=== PATIENT | female | born 1955 | race Caucasian/White ===

== ENCOUNTER → 2017-08-16 | Outpatient (CLI) | payer BC | END | disposition home or self-care (01) | LOC: CFH 10:21 | PROVIDERS: ATTEND Nurse Practitioner Primary Care | DX: Z13.820 Encounter for screening for osteoporosis (principal); M85.88 Other specified disorders of bone density and structure, other site; N95.9 Unspecified menopausal and perimenopausal disorder; I10 Essential (primary) hypertension; E78.2 Mixed hyperlipidemia; K21.9 Gastro-esophageal reflux disease without esophagitis | CPT/HCPCS: 77080 ==

== ENCOUNTER → 2017-09-07 | Outpatient (CLI) | payer BC | END | disposition home or self-care (01) | LOC: CFH 10:20 | PROVIDERS: ATTEND Internal Medicine | DX: Z12.31 Encounter for screening mammogram for malignant neoplasm of breast (principal) | CPT/HCPCS: G0202 ==

== ENCOUNTER → 2017-09-21 | Outpatient (CLI) | payer BC | END | disposition home or self-care (01) | LOC: LAB 10:18 | PROVIDERS: ATTEND Internal Medicine | DX: Z02.9 Encounter for administrative examinations, unspecified (principal) ==

== ENCOUNTER 2017-12-05 10:00 | Emergency (ER) | payer BC ==
[~2017-12-05] VITALS: Ht 170.2 cm; Wt 81.7 kg
[2017-12-05 10:01] VITALS: BP 150/82
[2017-12-05] MEDS ORDERED: KETOROLAC 30 MG/1 ML IM ONE (12:00)
[2017-12-05] MEDS ORDERED: KETOROLAC 30 MG/1 ML ONE (12:03)
== END 2017-12-05 12:23 | disposition home or self-care (01) ==
LOC: ED 12:17
DX: M10.9 Gout, unspecified (principal)
CPT/HCPCS: 73660; 96372; 99284; J1885

== ENCOUNTER → 2018-04-28 | Outpatient (CLI) | payer BC ==
[~2018-04-28] MED LIST: REGADENOSON 0.4 MG/5 ML SYRINGE ONE
== END | disposition home or self-care (01) ==
LOC: CFH 07:47
PROVIDERS: ATTEND Nurse Practitioner Primary Care
DX: I21.19 ST elevation (STEMI) myocardial infarction involving other coronary artery of inferior wall (principal); I25.9 Chronic ischemic heart disease, unspecified; I10 Essential (primary) hypertension; D23.30 Other benign neoplasm of skin of unspecified part of face; R53.83 Other fatigue; K58.0 Irritable bowel syndrome with diarrhea; R00.2 Palpitations; M85.9 Disorder of bone density and structure, unspecified; E55.9 Vitamin D deficiency, unspecified; F06.31 Mood disorder due to known physiological condition with depressive features; K21.9 Gastro-esophageal reflux disease without esophagitis; J45.909 Unspecified asthma, uncomplicated
CPT/HCPCS: 78452; 93017; A9502; J2785

== ENCOUNTER 2018-07-24 09:53 | Day surgery (SDC) | payer BC ==
[~2018-07-24] VITALS: Ht 167.6 cm; Wt 80.0 kg
[2018-07-24] MEDS ORDERED: SODIUM CHLORIDE 0.9% 1,000 ML IV ONE (10:09)
[2018-07-24 10:12] VITALS: BP 127/77
[2018-07-24] MEDS ORDERED: Allopurinol PO (10:28)
[2018-07-24] MEDS ORDERED: LANS30CA60 PO (10:28)
[2018-07-24] MEDS ORDERED: VALS1TAB24 PO (10:28)
[2018-07-24] MEDS ORDERED: MONT10TA9 PO (10:28)
[2018-07-24] MEDS ORDERED: ALBU2.5V NEB (10:28)
[2018-07-24] MEDS ORDERED: HYOS0.1281 SL (10:28)
[2018-07-24] MEDS ORDERED: UMEC1DIS INH (10:28)
[2018-07-24] MEDS ORDERED: AZEL1KIT2 INH (10:28)
[2018-07-24] MEDS ORDERED: FENO48TA5 PO (10:28)
[2018-07-24] MEDS ORDERED: ROSU5TAB PO (10:28)
[2018-07-24] MEDS ORDERED: methylPREDNISolone SOD SUCC 125 MG/2 ML IVPush ONE (10:30)
[2018-07-24] MEDS ORDERED: DIPHENHYDRAMINE 50 MG/ML, 1ML IVPush ONE (10:30)
[2018-07-24] MEDS ORDERED: FLUT9.9S INH (10:32)
[2018-07-24] MEDS ORDERED: ALBU90AE INH (10:32)
[2018-07-24] MEDS ORDERED: ASPI-621 PO (10:32)
[2018-07-24] MEDS ORDERED: ERGO500017 PO (10:32)
[2018-07-24] MEDS ORDERED: CLOB60CR TP (10:32)
[2018-07-24] MEDS ORDERED: CHOL2000 PO (10:32)
[2018-07-24 11:28] LABS: BASOPHILS # (AUTO) 0.04 x10^3/uL (0-0.1); BASOPHILS % (AUTO) 1 % (0-1); EOSINOPHILS # (AUTO) 0.12 x10^3/uL (0-0.4); EOSINOPHILS % (AUTO) 3 % (1-7); LYMPHOCYTES # (AUTO) 1.19 x10^3/uL (1-3.4); LYMPHOCYTES % (AUTO) 27 % (22-44); MD NO; MEAN CORPUSCULAR HEMOGLOBIN 32.3 pg (27.0-34.8); MEAN CORPUSCULAR VOLUME 95.1 fL (80-100); MEAN PLATELET VOLUME 9.1 fL (7.4-10.4); MONOCYTES # (AUTO) 0.39 x10^3/uL (0.2-0.8); MONOCYTES % (AUTO) 9 % (2-9); NEUTROPHILS # (AUTO) 2.73 x10^3/uL (1.8-6.8); NEUTROPHILS % (AUTO) 61 % (42-75); PLATELET COUNT 205 x10^3/uL (130-400); RED BLOOD COUNT 3.96 x10^6/uL (3.82-5.3); RED CELL DISTRIBUTION WIDTH 14.1 % (9.6-15.2)
[2018-07-24 11:50] LABS: INTERNATIONAL NORMALIZED RATIO 1.03 (0.93-1.1); PROTHROMBIN TIME 10.6 Seconds (9.6-11.5)
[2018-07-24] MEDS ORDERED: MIDAZOLAM 1 MG/ML, 2ML ONE (11:50)
[2018-07-24] MEDS ORDERED: FENTANYL PF 100 MCG/2ML ONE (11:50)
[2018-07-24] MEDS ORDERED: DIPHENHYDRAMINE 50 MG/ML, 1ML ONE (12:00)
[2018-07-24] MEDS ORDERED: methylPREDNISolone SOD SUCC 125 MG/2 ML ONE (12:00)
[2018-07-24] MEDS ORDERED: ACETAMINOPHEN 325 MG TABLET ONE (13:09)
[2018-07-24] MEDS ORDERED: ACETAMINOPHEN 325 MG TABLET PO ONE (13:30)
== END 2018-07-24 20:15 | disposition home or self-care (01) ==
LOC: CACL 09:53 → 5SO 16:04 → CACL 20:15
PROVIDERS: ATTEND Internal Medicine Cardiovascular Disease
DX: R07.9 Chest pain, unspecified (principal); R94.39 Abnormal result of other cardiovascular function study; I10 Essential (primary) hypertension; J45.909 Unspecified asthma, uncomplicated; Z88.5 Allergy status to narcotic agent; Z88.6 Allergy status to analgesic agent; Z88.1 Allergy status to other antibiotic agents; Z91.041 Radiographic dye allergy status; Z72.89 Other problems related to lifestyle
CPT/HCPCS: 36415; 85025; 85610; 93458; 99156; C1760; C1769; C1894; J1200; J2250; J2930; J3010; Q9967

== ENCOUNTER → 2018-12-05 | Outpatient (CLI) | payer BC ==
[~2018-12-05] MED LIST changes: +ALBU2.5V NEB; +ALBU90AE INH; +ASPI81TA45 PO; +AZEL1KIT2 INH; +Allopurinol PO; +CHOL2000 PO; +CLOB60CR TP; +ERGO500017 PO; +FENO48TA5 PO; +FLUT9.9S INH; +HYOS0.1281 SL; +LANS30CA60 PO; +MONT10TA9 PO; -REGADENOSON 0.4 MG/5 ML SYRINGE ONE; +ROSU5TAB PO; +UMEC1DIS INH; +VALS1TAB24 PO
== END | disposition home or self-care (01) ==
LOC: CARD 12:29
PROVIDERS: ATTEND Nurse Practitioner Primary Care
DX: E78.2 Mixed hyperlipidemia (principal); J45.909 Unspecified asthma, uncomplicated; R53.83 Other fatigue; I10 Essential (primary) hypertension; J30.9 Allergic rhinitis, unspecified; K21.9 Gastro-esophageal reflux disease without esophagitis; E55.9 Vitamin D deficiency, unspecified; F06.31 Mood disorder due to known physiological condition with depressive features
CPT/HCPCS: 94060; 94726; 94729

== ENCOUNTER → 2018-12-05 | Outpatient (CLI) | payer BC | END | disposition home or self-care (01) | LOC: CFH 14:53 | PROVIDERS: ATTEND Internal Medicine | DX: M47.816 Spondylosis without myelopathy or radiculopathy, lumbar region (principal); M43.16 Spondylolisthesis, lumbar region; M19.90 Unspecified osteoarthritis, unspecified site | CPT/HCPCS: 72100; 73523 ==

== ENCOUNTER → 2018-12-15 | Outpatient (CLI) | payer BC | END | disposition home or self-care (01) | LOC: CFH 09:56 | PROVIDERS: ATTEND Nurse Practitioner Primary Care | DX: Z12.31 Encounter for screening mammogram for malignant neoplasm of breast (principal) | CPT/HCPCS: 77067 ==

== ENCOUNTER → 2019-01-08 | Outpatient (CLI) | payer BC | END | disposition home or self-care (01) | LOC: CFH 10:28 | PROVIDERS: ATTEND Nurse Practitioner Primary Care | DX: M51.36 Other intervertebral disc degeneration, lumbar region (principal); M48.061 Spinal stenosis, lumbar region without neurogenic claudication; M47.9 Spondylosis, unspecified; M12.88 Other specific arthropathies, not elsewhere classified, other specified site | CPT/HCPCS: 72148 ==